=== PATIENT | male | born 1995 | race Caucasian/White ===

== ENCOUNTER 2017-05-27 19:07 | Emergency (ER) | payer OTHER ==
[~2017-05-27] VITALS: Ht 180.3 cm; Wt 80.1 kg
[2017-05-27 19:15] VITALS: Ht 180.3 cm; Wt 80.1 kg
[2017-05-27] MEDS ORDERED: EMPTY 8 DRAM VIAL ONE (19:48)
--- NOTE | 2017-05-27 20:01 | EMERGENCY ROOM VISIT NOTE ---
History First contact with patient: 19:19 Chief Complaint: OTHER COMPLAINT Stated Complaint: COLD SORES ON AND AROUND LIPS History of Present Illness The patient is a 21 year old male who presents to the Emergency Room with complaints of recurrent lip sores for the past 2 months. The patient is concerned that he may have contracted herpes from sharing a cup at a [employer] 2 months ago. The patient reports that when the sores break out, a look like blisters. He reports that they keep coming back in different places. He has not noticed any involvement of the inside of the cheeks, gums, tongue or throat. He denies any prior history of herpes simplex infection. He denies any history of immunocompromise or HIV, denying any risky sexual behavior. He rates his discomfort a 3 out of 10 when the blisters are at their worst. He has not had any further evaluation for the blisters. Review of Systems 10 system review was performed and was negative except for pertinent positives and negatives as indicated in history of present illness Past Medical/Surgical History Medical Problems: (1) No significant past medical history Surgical Problems: (1) No history of previous surgery Family History FH: diabetes mellitus FH: heart disease FH: hypertension FH: seizures Social History Smoking Status: Never Smoker Alcohol Use: occasionally Marital Status: single Housing Status: lives with friends Occupation Status: [employer] student Current/Historical Medications No Active Prescriptions or Reported Meds Physical Exam Vital Signs Date Time Temp Pulse Resp B/P (MAP) Pulse Ox O2 Delivery O2 Flow Rate FiO2 05/27/17 19:15 37.1 73 18 133/92 97 Room Air Physical Exam CONSTITUTIONAL: Healthy and well nourished. Alert and oriented X 3 with positive affect. HEENT: Normocephalic, atraumatic. Pupils equal, round and reactive. No facial edema noted. Ears and nares are clear. No rhinorrhea, submental hemorrhage, scleral icterus or conjunctival injection. OROPHARYNX: Examination does not show any current erythema or vesicular lesions of the wet mucosa of the lips, buccal mucosa, tongue, gingiva, palate or pharynx. LYMPHATICS: No submandibular, submental or cervical chain adenopathy. NECK: Full active range of motion without discomfort. RESPIRATORY: Clear to auscultation bilaterally with no wheezing, crackles, rhonchi or stridor. CARDIOVASCULAR: Regular rate and rhythm with no murmurs, rubs or gallops. INTEGUMENTARY: No rash or other significant dermatologic conditions noted. NEUROLOGIC: No focal neurologic deficits noted. Medical Decision & Procedures Medications Administered Medications (Trade) Dose Ordered Sig/Virgen Route Start Time Stop Time Status Last Admin Dose Admin Valacyclovir HCl (Valtrex Tab) 4,000 mg NOW ONCE PO 05/27/17 19:45 05/27/17 19:46 DC 05/27/17 19:51 4,000 MG ED Course Patient history and physical exam were performed. Nurse's notes were reviewed. Vital signs were reviewed and were normal. The patient reports that he is currently starting to get discomfort that he usually gets when the lesions breakout. I did explain to the patient that he likely does have herpes labialis ; however, I did suggest that when he does have blister eruption, he should have a confirmatory viral culture performed order to further guide future treatment. I did explain the importance of early treatment with herpes simplex outbreak. I do believe that he is currently in that phase at this point, and will therefore be treated with Valtrex 2 g now, and an additional 2 g in 12 hours. He was dispensed these medications from the emergency department because the pharmacy is closed, and will not be open early enough for the patient for his next 12 hour treatment. He was provided a educational handout regarding herpes simplex and Valtrex. The patient voiced understanding of all discharge instructions, and was happy with plan of care. Medical Decision Medication Reconcilliation Current Medication List: was personally reviewed by me Blood Pressure Screening Patient's blood pressure: Normal blood pressure Impression Primary Impression: Mouth sores Departure Information Dispostion Home / Self-Care Prescriptions No Active Prescriptions or Reported Meds Forms HOME CARE DOCUMENTATION FORM, IMPORTANT VISIT INFORMATION Patient Instructions [facility], ED Herpes Simplex Virus Type 1, Valacyclovir caplets Additional Instructions You have been administered Valtrex 2000 mg in the emergency department. Take your next Valtrex 2000 mg around 8 AM. Suggest calling your insurance company to find out where is most cost effective to have your oral blisters swabbed to confirm herpes simplex. Read handout provided regarding herpes and Valtrex. You are considered infectious as soon as you develop discomfort, and until the blisters are completely resolved.
[2017-05-27 20:15] VITALS: BP 126/76; PULSE 71; TEMP 37.1; O2SAT 98
== END 2017-05-27 20:16 | disposition home or self-care (01) ==
LOC: C.EDB 19:13 → C.EDD 20:16
DX: K13.70 Unspecified lesions of oral mucosa (principal); Z83.3 Family history of diabetes mellitus; Z82.49 Family history of ischemic heart disease and other diseases of the circulatory system; Z82.0 Family history of epilepsy and other diseases of the nervous system